=== PATIENT | male | born 1955 | race Two or more races ===

== ENCOUNTER 2019-02-23 07:14 | Outpatient (CLI) | payer OTHER | END 2019-02-23 09:11 | disposition home or self-care (01) | LOC: SONOGRAMA 07:14 | DX: R22.1 Localized swelling, mass and lump, neck (principal) ==

== ENCOUNTER 2021-05-23 14:58 | Emergency (ER) | payer OTHER ==
[~2021-05-23] VITALS: Ht 172.7 cm; Wt 73.5 kg
== END 2021-05-23 22:11 | disposition home or self-care (01) ==
LOC: ER 14:58
DX: K57.30 Diverticulosis of large intestine without perforation or abscess without bleeding (principal); R10.32 Left lower quadrant pain